=== PATIENT | female | born 1980 | race Caucasian/White ===

== ENCOUNTER 2017-02-22 10:33 | Emergency (ER) | payer BC ==
[~2017-02-22] VITALS: Ht 157.5 cm; Wt 59.0 kg
[~2017-02-22 10:33] MED LIST: AUGMENTIN1 TA2 PO; CIPRO 500MG TA500 MG PO; FLEXERIL10 MG PO; LORTAB 500 MG-71 TAB PO; NOMEDS *; NORCO 325 MG-51 TAB PO; PREDNISONE 10MG10 MG PO; PREDNISONE 20MG20 MG PO; TRAMADOL50 M1 PO; VICODIN 5/500 T1 TAB PO; ZITHROMAX Z-PA250 M2 PO; ZOFRAN ODT4 MG PO; ZOFRAN ODT8 MG PO
[2017-02-22 10:58] LABS: UTC STREP SCREEN NOT DETECTED (NOTDETECTED)
--- NOTE | 2017-02-22 11:15 | Urgent Treatment Center Report ---
History of Present Issue Date/Time Seen by Provider 02/22/17 1124 Visit Reason Pt arrived:Walked Presenting Problem:PT STATES BODY ACHES, SORE THROAT, HEADACHE AND RUNNY NOSE THAT BEGAN YESTERDAY MORNING Location if Accident: Onset of symptoms date/time:02/21/17/ or onset unknown for:MEDICAL HX UNKNOWN Have you (or family members/close friends) recently traveled outside the [place]? N If Yes, where/when: Have you had exposure to infectious disease within the past month? TB? Other? Specify: Source patient Exam Limitations no limitations Comment 36-year-old female presents today with body aches, nasal congestion, ear pain, sore throat and body aches. ALLERGIES Coded Allergies: morphine (ITCH[place] 03/09/16) History Medical History General CAD? No Angina: No [place]: No Hypertension? No Hyperlipidemia? No CHF? No DVT? No PE? No COPD? No Asthma? No Anemia? No GERD? No Gastric ulcers? No GI Bleed? No Hernia? No Thyroid Problems? No Hypothyroidism? No CVA? No Seizures? No Diabetes? No Renal Insuffiency? No UTI? No Stones? No GB Disease: No Nephritic Syndrome? No Asplenia? No Hepatitis? No Sickle Cell Disease? No Arthritis? No Migraines? No Cataracts? No Glaucoma? No MRSA? No HIV? No TB? No Anxiety? No Depression? No Cancer? No More? Yes Additional hx: 2 BULGING DISCS IN LOWER BACK Immunization HX DT/Tetanus > 10 YRS Flu NEVER Pneumonia NEVER Surgical Hx Previous Surgery?Y X 2 TUBAL LIGATION RIGHT OVARY/TUBE REMOVED CERVICAL ABLASION Family History Family HX Diabetes No CAD No Hypertension No Hyperlipidemia No Cancer Yes TB No Social History Smoking Hx Smoker: Current Every Day Smoker Tobacco: Yes Type Cigarettes Packs/day < 1 Pack Alcohol Alcohol: No Review of Systems All Other Systems Reviewed and Negative ENT see HPI, ear pain, nose discharge, nose congestion, throat pain. Respiratory see HPI, cough Cardiovascular denies no symptoms reported Gastrointestinal denies no symptoms reported Genitourinary denies: no symptoms reported. Physical Exam Vital Signs Vital Signs Date Time Temp Pulse Resp B/P Pulse O2 O2 Flow FiO2 Ox Delivery Rate 02/22 1044 98.3 103 14 130/73 99 General Appearance normal appearance, mild distress Eye Exam - bilateral eye normal exam, bilateral eye PERRL, bilateral eye EOMI Ear, Nose, Throat hearing grossly normal, nasal congestion, pharyngeal erythema, tonsillar exudate Neck normal inspection, full range of motion Respiratory Status Yes: trachea midline, chest symmetrical, non tender chest. No: respiratory distress. Lung Sounds left: decreased breath sounds, rhonchi. right: normal breath sounds, lungs clear. Cardiovascular normal exam, regular rate/rhythm Neurologic alert, normal exam, oriented x 3 Medical Decision Making LABS/Meds/Orders Pt receiving controlled substance in ED? No Results/Orders Laboratory Tests 02/22/17 1140: Sodium 136, Potassium 3.5, Chloride 102, Carbon Dioxide 24, BUN 9, Creatinine 0.6, Estimated Creat Clear 123, Estimated GFR (MDRD) 114, Glucose 92, Calcium 8.7, Total Bilirubin 0.5, AST 12 L, ALT 13, Alkaline Phosphatase 85, Total Protein 6.9, Albumin 3.8, Globulin 3.1, Albumin/Globulin Ratio 1.2, WBC 16.6 H, RBC 4.03 L, Hgb 12.5, Hct 36.1 L, MCV 89.5, RDW 12.3, Plt Count 292, MPV 7.5, Gran % 89.2 H, Gran # 14.8 H, Total Counted 100, Lymphocytes % 5.5 L, Monocytes % 4.1, Eosinophils % 0.9, Basophils % 0.3, Neutrophils 94 H, Lymphocytes (Manual) 4 L, Lymphocytes # 0.9, Monocytes (Manual) 2, Monocytes # 0.7, Eosinophils # 0.2, Basophils # 0.0, Platelet Estimate NORMAL, PUBS MCHC 34.7, MCH 31.0 02/22/17 1040: Influenza Type A Ag NOT DETECTED, Influenza Type B Ag NOT DETECTED, Group A Strep Screen NOT DETECTED Current Medication Orders Sig/Tasha Start time Last Medication Dose Route Stop Time Status Admin Ceftriaxone Sodium 0 .STK-MED ONE 02/22 120 DC .ROUTE Lidocaine HCl 0 .STK-MED ONE 02/22 120 DC .ROUTE Methylprednisolone 0 .STK-MED ONE 02/22 1203 DC Acetate IM Dexamethasone Sodium 0 .STK-MED ONE 02/22 1202 DC Phosphate .ROUTE Ceftriaxone Sodium 1 GM ONCE ONE 02/22 1200 DC 02/22 IM 02/22 1201 1211 Dexamethasone Sodium 4 MG ONCE ONE 02/22 1200 DC 02/22 Phosphate IM 02/22 1201 1212 Lidocaine HCl 0 ONCE ONE 02/22 1200 DC 02/22 IM 02/22 1201 1211 Methylprednisolone 40 MG ONCE ONE 02/22 1200 DC 02/22 Acetate IM 02/22 1201 1212 Orders Procedure Date/time Status DIFFERENTIAL-WBC 02/22 1140 Complete CBC WITH AUTO DIFF 02/22 1114 Complete CHEM 12 PROFILE 02/22 1114 Complete UTC STREP SCREEN 02/22 1047 Complete UTC FLU A,B 02/22 1047 Complete Departure Departure Time of Disposition 1126 Disposition DC Home or Self Care(routine) Clinical Impression Primary Impression: Acute bronchitis Qualifiers: Bronchitis organism: unspecified organism Qualified Code: J20.9 - Acute bronchitis, unspecified Condition STABLE Referrals Julius Hernandse MD Patient Instructions Acute Bronchitis, DI for Acute Bronchitis Additional Instructions Medication as ordered Tylenol Motrin as needed for pain or fever If symptoms worsen or no improvement return to the ER Follow-up with primary care this week Discharge Counseling Counseled pt/family regarding diagnosis, medications/RX, home care, follow up needs Prescriptions Current Visit Scripts Azithromycin (Zithromax) 250 MG PO DAILY #6 TAB USE DIRECTED. at 1229
[2017-02-22 11:55] LABS: LYMPH # 0.9 K/mm3 (0.7-4.5); LYMPH % 5.5 % (10-50.0)
--- NOTE | 2017-02-22 12:02 | RADIOLOGY REPORT PS360 ---
CHEST(2 VIEWS-NOT PORTABLE) INDICATION: Cough COMPARISON: PA and lateral chest 01/31/2015 FINDINGS: The lung robb are well expanded and appear clear of infiltrate. There are couple calcified left hilar nodes and there are tiny calcified granulomata left lung The cardiomediastinal silhouette and vascularity are normal. The costophrenic angles are clear. The bony thorax is normal. IMPRESSION: Normal chest.
[2017-02-22 12:03] LABS: HEMOGLOBIN 12.5 g/dL (12.2-16.2)
[2017-02-22] MEDS ORDERED: ZITHROMAX Z-PA250 M2 PO (12:11)
[2017-02-22 12:20] LABS: NEUTROPHILS 94 % (42-76)
[2017-02-22 12:39] VITALS: BP 130/73
== END 2017-02-22 12:39 | disposition home or self-care (01) ==
LOC: UTC 10:33 → ER 10:35 → UTC 10:35
PROVIDERS: Nurse Practitioner Family
DX: J20.9 Acute bronchitis, unspecified (principal); F17.210 Nicotine dependence, cigarettes, uncomplicated
CPT/HCPCS: J1040

== ENCOUNTER → 2017-04-17 | Outpatient (CLI) | payer BC ==
--- NOTE | 2017-04-21 07:21 | RADIOLOGY REPORT PS360 ---
DIG MAMM- FRITZ ADD VIEWS W/CAD, US BREAST-RT COMPLETE W/AXILLA, US BREAST-LT COMPLETE W/AXILLA COMPARISON: 06/25 and 09/15/2012 INDICATION: Follow-up abnormal mammogram ORDERING PHYSICIAN: Dillon Carranza MD PATIENT AGE: 37 years TECHNIQUE: Spot compression views performed along with bilateral breast ultrasound FINDINGS: Right breast: The asymmetric density in the lateral aspect of the right breast does appear to represent fibroglandular tissue and does appear to compress out on focal spot compression view. No malignant appearing mass or malignant calcification apparent. Right breast ultrasound: 5 x 3 mm cyst at 1:00. 3 mm and a 6 mm cyst at 9:00, 3 mm cyst at 6:00, 5 mm cyst at 10:00. Small nodes in the axilla. No suspicious abnormalities apparent Left mammogram: There is a well-circumscribed 17 mm nodule in the upper outer left breast. Just anterior to this is an additional nodule well circumscribed measuring 6 mm. The asymmetric density deep to this area seen on the screening image appears to compress out as fibroglandular tissue. Left breast ultrasound: There is a 16 mm cyst at 1:00. An adjacent 6 mm cyst is present at this region. These appear to be connected. These correspond to the mammographic abnormality. There is a 8 mm cyst at 2:00. No suspicious nodules are evident. IMPRESSION: Benign findings, no evidence of malignancy. Bilateral breast cysts BI-RADS CATEGORY: 2_Benign RECOMMENDED FOLLOWUP: Screening mammogram April 2018 (A letter has been sent to the patient regarding results of the study.)
== END ==
LOC: RAD 14:14
DX: R92.8 Other abnormal and inconclusive findings on diagnostic imaging of breast (principal)
CPT/HCPCS: G0204